=== PATIENT | female | born 1980 | race Two or more races ===

== ENCOUNTER 2017-12-07 11:25 | Emergency (ER) | payer MEDICAID ==
[~2017-12-07] VITALS: Ht 157.5 cm; Wt 80.7 kg
[2017-12-07 11:35] VITALS: BP 132/77
[2017-12-07] MEDS ORDERED: KETOROLAC TROMETHAMINE INJ 60 MG/2 ML VIAL IM ONE (12:00)
[2017-12-07] MEDS ORDERED: KETOROLAC TROMETHAMINE INJ 30 MG/ML VIAL ONE (12:03)
== END 2017-12-07 12:42 | disposition home or self-care (01) ==
LOC: ER 11:30
DX: M25.572 Pain in left ankle and joints of left foot (principal); M19.90 Unspecified osteoarthritis, unspecified site; Z98.890 Other specified postprocedural states
CPT/HCPCS: 96372; 99283; A4606; J1885; Z7610

== ENCOUNTER 2018-12-03 00:09 | Emergency (ER) | payer MEDICAID ==
[~2018-12-03] VITALS: Ht 154.9 cm; Wt 81.6 kg
--- NOTE | 2018-12-03 00:25 | NUR ---
BIB FAMILY FOR FLU LIKE SYMPTOMS FOR THE PAST FEW DAYS SYMPROMS INCLUDE: COUGH, H/A, SORETHROAT, NO FEVER
[2018-12-03] MEDS ORDERED: GUAIFENESIN/D-METHORPHAN HB 5 ML UDC ONE (00:35)
[2018-12-03] MEDS ORDERED: GUAIFENESIN/D-METHORPHAN HB 5 ML UDC PO ONE (01:00)
--- NOTE | 2018-12-03 01:44 | NUR ---
Patient discharged to home in stable condition. Rx and Written and verbal after care instructions given. Patient verbalizes understanding of instruction.
[2018-12-03 01:53] VITALS: BP 132/68
== END 2018-12-03 01:53 | disposition home or self-care (01) ==
LOC: ER 00:11
DX: J06.9 Acute upper respiratory infection, unspecified (principal); Z98.890 Other specified postprocedural states
CPT/HCPCS: 71045-TC; 86403-TC; 87070-TC; 87400